=== PATIENT | male | born 1950 | race Caucasian/White ===

== ENCOUNTER 2025-09-16 23:22 | Emergency (ER) | payer OTHER, SELFPAY ==
[2025-09-16 23:32] VITALS: BP 127/86
--- NOTE | 2025-09-17 01:16 | ED.GENMED ---
History of Present Illness
General
Chief Complaint: Dental Problem
Source: patient
Exam Limitations: none
Time Seen by Provider: 09/17/25 00:44
Nursing documentation reviewed up to this point in time: agreed with
History of Present Illness
History of Present Illness:
Note:
CHIEF COMPLAINT(S)
Dental pain in the lower left molar region.
HISTORY OF PRESENT ILLNESS
The patient is a 75-year-old male presenting with dental pain in the lower left molar region, which began on . He has applied topical benzocaine to the affected area, providing temporary relief for about ten minutes. The pain is localized,
and the patient suspects it might be related to prior dental work, as it is in the same area where he has crowns. He was unable to contact his dentist as the office was closed by the time he called.
MEDICATIONS
Currently taking aspirin.
PHYSICAL EXAM
General: Alert, no acute distress.
Skin: Warm, dry.
Head: Normocephalic, atraumatic.
Neck: Supple, trachea midline.
Eye, Ears, Nose, Mouth, and Throat: Oral mucosa moist. caps on right lower molars
Cardiovascular: Normal peripheral perfusion, no edema.
Respiratory: Respirations are non-labored.
Gastrointestinal: Abdomen nondistended.
Back: Normal range of motion, normal alignment.
Musculoskeletal: Normal range of motion, normal strength.
Neurological: Alert and oriented to person, place, time, and situation, no focal neurological deficit observed.
Psychiatric: Cooperative, appropriate mood & affect.
PROBLEM LIST
Acute: Dental pain in the lower left molar region.
PLAN
Administer a cortisone injection for immediate pain relief. Prescribe antibiotics to address the underlying cause of the dental pain and advise the patient to follow up with their dentist for further evaluation and potential imaging to assess the
condition of the affected tooth.
DIFFERENTIAL DIAGNOSIS
The Differential Diagnosis includes, in no particular order and is not limited to:
1. Dental abscess
2. Tooth decay
3. Gum disease
4. Cracked tooth
5. Pulpitis
6. Periapical periodontitis
7. Recurrent Tooth infection
8. Impacted tooth
9. Trigeminal neuralgia
10. Temporomandibular Joint Disorder (TMJ)
Disposition:
SUMMARY OF ENCOUNTER
The patient, a 75-year-old male, presented to the emergency department with dental pain in the lower left molar region that began a few days ago. He reported having crowns in the affected area and suspected that the pain could be related to prior
dental work. Physical examination revealed poor dentition but no signs of abscess or deep-space infection. As the patient was unable to contact his dentist, he sought care here for pain management and further evaluation.
ASSESSMENT
The patient is experiencing dental pain potentially due to issues with prior dental work or possible emerging dental conditions like pulpitis or a cracked tooth. There is no current evidence of abscess or deeper infection requiring invasive
intervention or imaging.
PLAN
Treat the patient with an antibiotic, doxycycline, to address potential bacterial infection contributing to the pain until the patient can see a dentist. Encourage follow-up with the dentist as soon as possible for comprehensive evaluation and
management.
PATIENT EDUCATION AND COUNSELING
The patient was advised regarding the importance of seeing a dentist promptly for further assessment and possible imaging to evaluate the condition of the affected tooth in detail. Discussed how antibiotics might provide relief but are not a
substitute for dental care.
FOLLOW-UP INSTRUCTIONS
Patient instructed to contact and follow up with their dentist as soon as possible for further evaluation and definitive treatment.
MEDICATION RECONCILIATION
Prescribed doxycycline for the management of possible bacterial infection contributing to dental pain.
MEDICAL DECISION MAKING
- Complexity of Data Reviewed: DDx includes dental abscess, tooth decay, gum disease, cracked tooth, pulpitis, periapical periodontitis, recurrent tooth infection, impacted tooth, trigeminal neuralgia, and temporomandibular joint disorder (TMJ).
DIAGNOSIS
Possible dental pulpitis or tooth-related pain without evidence of acute infection or abscess, ICD-10-CM Code K08.8 (Other specified disorders of teeth and supporting structures).
Past History
Past History
ED Past Medical History: HTN (Borderline) and Other (GI bleed, nosebleeds)
ED Past Surgical History: Other (Bilateral knee surgery, bunionectomy, nasal surgery)
Social History
Tobacco: Other (Occasional pipe smoker)
Alcohol: Occasional
Personal:
Living: with family
Employment: Employed
Family History
Family History: Other (Father with cerebral hemorrhage and gout)
Phy Exam
Physical Exam
Physical Exam:
.
Course
Orders/Labs/Results
Orders:
Orders
09/17/25 01:11
Doxycycline [Vibramycin] 100 mg PO NOW STA
Ketorolac [Toradol] 15 mg IM NOW STA
Vital Signs
Initial and Last Documented VS:
Initial Vital Signs
Temp Pulse Resp BP Pulse Ox
98.0 F 58 16 127/86 98
09/16/25 23:32 09/16/25 23:32 09/16/25 23:32 09/16/25 23:32 09/16/25 23:32
Last Documented Vital Signs
Temp Pulse Resp BP Pulse Ox
98.0 F 58 16 127/86 98
09/16/25 23:32 09/16/25 23:32 09/16/25 23:32 09/16/25 23:32 09/17/25 01:17
*Pulse Oximetry
SaO2: 98
Oxygen Mode of Delivery: Room air
Patient hypoxic: no
*Critical Care Note
Total Time (30-74mins, 75-104mins- exclusive of procedures): Not Applicable
ED Attending Note
-
Portions of this chart may have been created with voice recognition software.� Occasional wrong word or��sound alike� substitutions may have occurred due to the inherent limitations of voice recognition software.
Discharge Plan
Departure
Patient Disposition: Home (Routine Discharge)
Date of Disposition: 09/17/25
Time of Disposition: 01:25
Patient with high blood pressure during this ER visit?: Yes
Condition: Good
Discharge Problem:
Pain, dental
Instructions: Dental Pain (DC), BLOOD PRESSURE
Prescriptions:
New
doxycycline hyclate 100 mg capsule
100 mg PO BID Qty: 10 0RF
No Action
hydrochlorothiazide 25 MG tablet
25 mg PO DAILY
atorvastatin 10 MG tablet
10 mg PO QPM Qty: 30 0RF
aspirin 81 MG tablet,delayed release (DR/EC)
81 mg PO DAILY Qty: 0 0RF
Referrals:
Dominik Valentin PA-C [Family Provider, General]
Activity Restrictions/Additional Instructions:
Follow up with your dentist in 1-3 days. Return for any concerns.
Interventions
Interventions:
*Risk Screen - Suicide Last Done: 09/16/25 23:32
*General Assessment Last Done: 09/16/25 23:39
*Neglect/Abuse Screening Last Done: 09/16/25 23:32
*ED- Fall Risk Assessment Last Done: 09/16/25 23:32
*ED COVID-19 Vaccine History Last Done: 09/16/25 23:32
*ED Influenza Vaccine History Last Done: 09/16/25 23:32
Discharge Date and Time
Print Language: DOMINICAN
[2025-09-17] MEDS: VIBRAMYCIN 100 MG PO (01:30)
[2025-09-17] MEDS: TORADOL 15 MG IM (01:30)
== END 2025-09-17 01:36 | disposition home or self-care (01) ==
LOC: EMR 23:22
PROVIDERS: EMERGENCY PHYSICIAN Emergency Medicine
DX: K08.89 Other specified disorders of teeth and supporting structures (principal); I10 Essential (primary) hypertension
CPT/HCPCS: 99282; 96372